=== PATIENT | female | born 1980 | race Caucasian/White ===

== ENCOUNTER 2021-09-05 11:13 | Emergency (ER) | payer MEDICAID ==
[~2021-09-05] VITALS: Ht 165.1 cm; Wt 56.0 kg
[2021-09-05] MEDS ORDERED: IBUPROFEN 600 MG TABLET. PO ONE (12:15)
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
[2021-09-05 13:27] VITALS: BP 109/63
[2021-09-05] MEDS ORDERED: HYDR-2155 PO (13:31)
== END 2021-09-05 13:39 | disposition home or self-care (01) ==
LOC: ER 11:13 → EEVIPCON 11:13 → ER 13:39
DX: R07.81 Pleurodynia (principal); M25.562 Pain in left knee
CPT/HCPCS: 71100; 73562; 81025; 99284-25